=== PATIENT | female | born 1965 | race Caucasian/White ===

== ENCOUNTER 2019-11-02 16:57 | Emergency (ER) | payer OTHER ==
--- OUTSIDE RECORDS SUMMARY | 2019-11-02 16:58 | XMS REPORT ---
:1965 [facility] Address [address] [place] [address] Dr. Pride [address] [place] [id number] Care Team Providers Name Role Phone Unavailable Unavailable Unavailable Problems This patient has no known problems. Allergies, Adverse Reactions, Alerts This patient has no known allergies or adverse reactions. Medications This patient has no known medications.
--- NOTE | 2019-11-02 19:28 | RAD REPORT ---
EXAM DESCRIPTION: RAD - Chest Single View - 11/02/2019 7:02 pm CLINICAL HISTORY: AMS Chest pain. COMPARISON: No comparisons FINDINGS: Portable technique limits examination quality. The lungs are grossly clear. The heart is normal in size. No displaced fractures. IMPRESSION: No acute intrathoracic process suspected.
--- NOTE | 2019-11-02 19:30 | RAD REPORT ---
EXAM DESCRIPTION: CT - Head Brain Wo Cont - 11/02/2019 7:24 pm CLINICAL HISTORY: speech changes;Confused Headache, drowsiness COMPARISON: No comparisons TECHNIQUE: All CT scans are performed using dose optimization technique as appropriate and may inclu de automated exposure control or mA/KV adjustment according to patient size. FINDINGS: No intracranial hemorrhage, hydrocephalus or extra-axial fluid collection.No areas of brai n edema or evidence of midline shift. There is significant fluid within the visualized paranasal sinuses. The calvarium is intact. IMPRESSION: No acute intracranial abnormality. Significant opacification of the paranasal sinuses seen.
[2019-11-02 19:32] LABS: Barbiturates NEGATIVE (NEGATIVE); Benzodiazepines NEGATIVE (NEGATIVE); Cocaine NEGATIVE (NEGATIVE); METHAMPHETAM NEGATIVE (NEGATIVE); Methadone NEGATIVE (NEGATIVE); Opiates NEGATIVE (NEGATIVE); Phencyclidine NEGATIVE (NEGATIVE); THC Cannibis NEGATIVE (NEGATIVE)
[2019-11-02 19:46] LABS: Urine Blood NEGATIVE (NEG); Urine Glucose NEGATIVE (NEG); Urine Protein NEGATIVE (NEG); Urine pH 5.5 (5.0-7.0)
[2019-11-02 20:01] LABS: Absolute Lymphocytes (CBC) 2.1 K/uL (0.7-4.9); Basophils % 0.4 % (0-1.3); Hematocrit 35.2 % (36.0-45.0); Lymphocytes % 21.5 % (15.3-44.8); MPV 9.4 fL (7.6-11.3); RBC Red Blood Cell Count 4.24 M/uL (3.86-4.86)
[2019-11-02 20:17] LABS: ALT/SGPT 19 U/L (12-78); AST/SGOT 10 U/L (15-37); Albumin 3.3 g/dL (3.4-5.0); Alkaline Phosphatase 74 U/L (45-117); BUN Blood Urea Nitrogen 17 mg/dL (7-18); Bicarbonate 26 mmol/L (21-32); Bilirubin Direct < 0.1 mg/dL (0-0.2); Bilirubin Total 0.3 mg/dL (0.2-1.0); Glucose Level 102 mg/dL (74-106); Magnesium 2.1 mg/dL (1.8-2.4); Potassium 4.2 mmol/L (3.5-5.1); Protein, Total 6.5 g/dL (6.4-8.2); Sodium Level 137 mmol/L (136-145)
[2019-11-02] MEDS ORDERED: NA CHLORIDE 0.9% 1,000 ML ONE (20:24)
[2019-11-02] MEDS ORDERED: CEFTRIAXONE/SWI 1gm 1 GM/10 ML SYR ONE (20:24)
--- NOTE | 2019-11-02 21:31 | EDPHYS ---
Physician Documentation [facility] Name: Anai Castaneda Age: 54 yrs Sex: Female : 1965 Arrival Date: 11/02/2019 Time: 16:58 Bed 26 Private MD: ED Physician Lucia Platt HPI: 11/01 21:28 This 54 yrs old Female presents to ER via Ambulatory with complaints of Low ma2 Blood Sugar. 21:28 Onset: The symptoms/episode began/occurred gradually, 1 day(s) ago. Associated signs ma2 and symptoms: Pertinent negatives: anorexia, decreased urine output, diarrhea. The patient has not experienced similar symptoms in the past. 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 - Social history:: Smoking status: Patient reports the use of cigarette tobacco products, denies chronic smoking, but will smoke occasionally, Patient/guardian denies using alcohol, street drugs, Patient/guardian denies using. - Family history:: not pertinent. ROS: 21:28 Constitutional: Negative for fever, chills, and weight loss. ma2 21:28 All other systems are negative. Exam: 21:28 Constitutional: This is a well developed, well nourished patient who is awake, alert, ma2 and in no acute distress. Chest/axilla: Normal chest wall appearance and motion. Nontender with no deformity. No lesions are appreciated. Cardiovascular: Regular rate and rhythm with a normal S1 and S2. No gallops, murmurs, or rubs. Normal PMI, no JVD. No pulse deficits. Respiratory: Lungs have equal breath sounds bilaterally, clear to auscultation and percussion. No rales, rhonchi or wheezes noted. No increased work of breathing, no retractions or nasal flaring. Abdomen/GI: Soft, non-tender, with normal bowel sounds. No distension or tympany. No guarding or rebound. No evidence of tenderness throughout. MS/ Extremity: Pulses equal, no cyanosis. Neurovascular intact. Full, normal range of motion. Neuro: Awake and alert, GCS 15, oriented to person, place, time, and situation. Cranial nerves II-XII grossly intact. Motor strength 5/5 in all extremities. Sensory grossly intact. Cerebellar exam normal. Normal gait. Vital Signs: 17:14 BP 95 / 65; Pulse 77; Resp 17 S; Temp 98.4(TE); Pulse Ox 96% on R/A; Weight 69.85 kg ca1 (R); Height 5 ft. 4 in. (162.56 cm) (R); 18:26 BP 100 / 62; Pulse 72; Resp 16; Pulse Ox 97% on R/A; rb1 20:28 BP 95 / 65; Pulse 70; Resp 18; Pulse Ox 100% ; ea 22:01 BP 100 / 70; Pulse 68; Resp 18; Temp 97.6; Pulse Ox 100% ; ea 17:14 Body Mass Index 26.43 (69.85 kg, 162.56 cm) ca1 MDM: 20:29 Patient medically screened. ma2 21:28 Differential diagnosis: diabetes insipidus, hyperglycemia, hyperthyroidism. Data ma2 reviewed: vital signs, nurses notes. Counseling: I had a detailed discussion with the patient and/or guardian regarding: the historical points, exam findings, and any diagnostic results supporting the discharge/admit diagnosis, the presence of at least one elevated blood pressure reading (>120/80) during this emergency department visit, the need for outpatient follow up. Response to treatment: the patient's symptoms have markedly improved after treatment. ED course: she is back to normal normal vs and wbc, has uti, discussed with dr. pace will discharge and he will see her i the next 2 days . 11/01 17:38 Order name: Glucose, Ancillary Testing; Complete Time: 20:15 EDMS 11/01 18:49 Order name: Basic Metabolic Panel; Complete Time: 20:57 kdr 11/01 18:49 Order name: CBC with Diff; Complete Time: 20:15 kdr 11/01 18:49 Order name: LFT's; Complete Time: 20:57 kdr 11/01 18:49 Order name: Magnesium; Complete Time: 20:57 kdr 11/01 18:49 Order name: ETOH Level; Complete Time: 20:57 kdr 11/01 18:49 Order name: XRAY Chest (1 view); Complete Time: 20:15 kdr 11/01 18:49 Order name: CT Head Brain wo Cont; Complete Time: 20:15 kdr 11/01 18:49 Order name: UDS; Complete Time: 20:15 kdr 11/01 19:20 Order name: Urine Dipstick--Ancillary (enter results); Complete Time: 20:15 mt 11/01 18:49 Order name: IV Saline Lock; Complete Time: 19:49 kdr 11/01 18:49 Order name: Labs collected and sent; Complete Time: 19:49 kdr 11/01 18:49 Order name: O2 Per Protocol; Complete Time: 19:50 kdr 11/01 18:49 Order name: O2 Sat Monitoring; Complete Time: 19:50 kdr Administered Medications: 20:25 Drug: Rocephin 1 grams Route: IV; Rate: calculated rate; Site: right antecubital; ea 20:26 Drug: NS 0.9% 1000 ml Route: IV; Rate: 1 bolus; Site: right antecubital; ea 22:03 Follow up: Response: No adverse reaction; IV Status: Completed infusion; IV Intake: ea 1000ml Point of Care Testing: Blood Glucose: 17: Blood Glucose: 105 mg/dL; ca1 Ranges: Critical Glucose Levels:Adult <50 mg/dl or >400 mg/dl <40 mg/dl or >180 mg/dl Disposition: 11/02/19 21:30 Discharged to Home. Impression: Cystitis, unspecified without hematuria. - Condition is Stable. - Discharge Instructions: Urinary Tract Infection, Adult. - Prescriptions for Cipro 500 mg Oral Tablet - take 1 tablet by ORAL route every 12 hours for 7 days; 14 tablet. - Medication Reconciliation Form, Thank You Letter, Antibiotic Education, Prescription Opioid Use form. - Follow up: Private Physician; When: Tomorrow; Reason: If symptoms return. Signatures: Dispatcher [employer] EDMS Amaury Vivar MD MD kdr Antunez, Elena, RN RN Lucia Jolly MD MD ma2 Sarahi Cummings RN RN ca1 Corrections: (The following items were deleted from the chart) 21:29 21:25 Ammonia ordered. EDMS EDMS 22:02 21:30 11/02/2019 21:30 Discharged to Home. Impression: Cystitis, unspecified without ea hematuria. Condition is Stable. Forms are Medication Reconciliation Form, Thank You Letter, Antibiotic Education, Prescription Opioid Use. Follow up: Private Physician; When: Tomorrow; Reason: If symptoms return. ma2
--- NOTE | 2019-11-02 21:31 | ER ---
Nurse's Notes [facility] Name: Anai Castaneda Age: 54 yrs Sex: Female : 1965 Arrival Date: 11/02/2019 Time: 16:58 Bed 26 Private MD: Diagnosis: Cystitis, unspecified without hematuria Presentation: 11/01 17:14 Chief complaint: Patient's son or daughter states: Sent by Dr. Diaz, for A1C of 7.3. ca1 Reports confusion, delirium, decreased appetite. She has mental issues, mild cognitive impairment and bipolar disorder. She takes medications but it she is more disoriented and confused than usual. All these started around Wednesday. Blood work was done by nurse Shanon yesterday at [facility]. Pt A\T\Ox4, ambulatory. Coronavirus screen: Patient reports a cough. Patient denies shortness of breath or difficulty breathing. Patient denies measured and/or subjective temperature greater than 100.4F. Patient denies travel on a cruise ship or to a country the [facility] currently lists as an affected area. Patient denies contact with known and/or suspected case of COVID-19. Ebola Screen: Patient negative for fever greater than or equal to 101.5 degrees Fahrenheit, and additional compatible Ebola Virus Disease symptoms Patient denies exposure to infectious person. Patient denies travel to an Ebola-affected area in the 21 days before illness onset. No symptoms or risks identified at this time. Initial Sepsis Screen: Does the patient meet any 2 criteria? No. Patient's initial sepsis screen is negative. Does the patient have a suspected source of infection? No. Patient's initial sepsis screen is negative. Risk Assessment: Do you want to hurt yourself or someone else? Patient reports no desire to harm self or others. Onset of symptoms was November 02, 2019. 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 - Social history:: Smoking status: Patient reports the use of cigarette tobacco products, denies chronic smoking, but will smoke occasionally, Patient/guardian denies using alcohol, street drugs, Patient/guardian denies using. - Family history:: not pertinent. Screenin:00 Abuse screen: Denies threats or abuse. Nutritional screening: No deficits noted. rb1 Tuberculosis screening: No symptoms or risk factors identified. Fall Risk None identified. Assessment: 17:55 Reassessment: Son's name and Number for questions: [place] [phone]. ca1 18:00 General: Appears in no apparent distress. comfortable, Behavior is calm, cooperative, rb1 Denies fever, feeling ill, chills. 18:00 Pain: Complains of pain in anterior aspect of left upper chest Quality of pain is rb1 described as pressure. Neuro: Level of Consciousness is awake, alert, obeys commands, Oriented to person, place, situation, Speech is slurred, Pt. reports that she has had slurred speech for the last three years, but it has gotten worse over the last few weeks. She reports that she has early onset Dementia.. Neuro: Reports headache frontal area. Cardiovascular: Capillary refill < 3 seconds is brisk in bilateral fingers. Respiratory: Reports cough that is Airway is patent Respiratory effort is even, unlabored, Respiratory pattern is regular, symmetrical, Denies shortness of breath. GI: No signs and/or symptoms were reported involving the gastrointestinal system. : No signs and/or symptoms were reported regarding the genitourinary system. Derm: Skin is pink, warm \T\ dry. Musculoskeletal: Range of motion: intact in all extremities. 18:57 Reassessment: Patient appears in no apparent distress at this time. No changes from rb1 previously documented assessment. X-ray at the bedside. 19:35 General: Appears in no apparent distress. Behavior is calm, cooperative. Pain: ea Complains of pain in chest. Neuro: Level of Consciousness is awake, alert, obeys commands, Oriented to person, place. Respiratory: Airway is patent Respiratory effort is even, unlabored, Respiratory pattern is regular, symmetrical. Derm: Skin is pink, warm \T\ dry. 20:24 Reassessment: Patient and/or family updated on plan of care and expected duration. Pain ea level reassessed. Patient is alert, oriented x 3, equal unlabored respirations, skin warm/dry/pink. 21:00 Reassessment: Patient and/or family updated on plan of care and expected duration. Pain ea level reassessed. Patient is alert, oriented x 3, equal unlabored respirations, skin warm/dry/pink. 21:57 Reassessment: Patient and/or family updated on plan of care and expected duration. Pain ea level reassessed. Patient is alert, oriented x 3, equal unlabored respirations, skin warm/dry/pink. Discharge instruction given to patient, verbalized the understanding of instruction. Pt left ED ambulatory, son awaiting for patient at ED entrance. Pt left ED via private vehicle. Vital Signs: 17:14 BP 95 / 65; Pulse 77; Resp 17 S; Temp 98.4(TE); Pulse Ox 96% on R/A; Weight 69.85 kg ca1 (R); Height 5 ft. 4 in. (162.56 cm) (R); 18:26 BP 100 / 62; Pulse 72; Resp 16; Pulse Ox 97% on R/A; rb1 20:28 BP 95 / 65; Pulse 70; Resp 18; Pulse Ox 100% ; ea 22:01 BP 100 / 70; Pulse 68; Resp 18; Temp 97.6; Pulse Ox 100% ; ea 17:14 Body Mass Index 26.43 (69.85 kg, 162.56 cm) ca1 ED Course: 16:58 Patient arrived in ED. ag5 17:22 Triage completed. ca1 17:23 Arm band placed on right wrist. ca1 17:37 Amaury Vivar MD is Attending Physician. kdr 17:59 Kesha Chavez, RN is Primary Nurse. rb1 18:00 Patient has correct armband on for positive identification. Bed in low position. Call rb1 light in reach. Side rails up X 1. electronic device monitor on. Pulse ox on. NIBP on. Warm blanket given. 19:03 XRAY Chest (1 view) In Process Unspecified. EDMS 19:27 CT Head Brain wo Cont In Process Unspecified. EDMS 19:49 Inserted saline lock: 20 gauge in right forearm, using aseptic technique. ea 21:30 Lucia Platt MD is Attending Physician. ma2 21:50 IV discontinued, intact, bleeding controlled, No redness/swelling at site. Pressure ea dressing applied. 22:00 No provider procedures requiring assistance completed. ea Administered Medications: 20:25 Drug: Rocephin 1 grams Route: IV; Rate: calculated rate; Site: right antecubital; ea 20: Drug: NS 0.9% 1000 ml Route: IV; Rate: 1 bolus; Site: right antecubital; ea 22:03 Follow up: Response: No adverse reaction; IV Status: Completed infusion; IV Intake: ea 1000ml Point of Care Testing: Blood Glucose: 17: Blood Glucose: 105 mg/dL; ca1 Ranges: Intake: 22:03 IV: 1000ml; Total: 1000ml. ea Outcome: 21:30 Discharge ordered by . marek 22:01 Discharged to home ambulatory, with family. ea 22: Condition: stable 22:01 Discharge instructions given to patient, Instructed on discharge instructions, follow up and referral plans. medication usage, Demonstrated understanding of instructions, follow-up care, medications, Prescriptions given X 1. 22:02 Patient left the ED. ea Signatures: Dispatcher [employer] EDMS Amaury Vviar MD MD kdr Barber, Rebecca, CHARMAINE RN Antoinette Crocker RN RN ea Alzahri, Mohammad, MD MD ma2 Acob, Cheryl, RN RN ca1 Sumeet Reyes ag5 Corrections: (The following items were deleted from the chart) 17:57 17:14 Chief complaint: Patient's son or daughter states: Sent by Dr. Diaz, for A1C of ca1 7.3. Reports confusion, delirium, decreased appetite. She has mental issues, mild cognitive impairment and bipolar disorder. She takes medications but it she is more disoriented and confused than usual. All these started around Luis F. Blood work was done by nurse Claudio yesterday at [facility]. ca1 18:20 18:00 General: Appears in no apparent distress. comfortable, Behavior is calm, rb1 cooperative, Denies fever, feeling ill, chills, rb1
[2019-11-02 22:32] VITALS: O2SAT 100
[2019-11-02 22:33] VITALS: BP 100/70; TEMP 97.6
== END 2019-11-02 22:02 | disposition home or self-care (01) ==
LOC: ER 16:57
DX: N30.90 Cystitis, unspecified without hematuria (principal); I10 Essential (primary) hypertension; E11.9 Type 2 diabetes mellitus without complications; Z91.048 Other nonmedicinal substance allergy status
CPT/HCPCS: 96361; 85025; 80048; 36415; 80320; 83735; 82947; 80076; 80307 ×8; 81003; 70450; 71045; 96374; 99284; J0696; J7030

== ENCOUNTER 2020-03-05 16:58 | Observation (INO) | payer OTHER ==
--- OUTSIDE RECORDS SUMMARY | 2020-03-05 17:01 | XMS REPORT | Continuity of Care Document ---
:1965 Author Organization [facility] t Address [address] [place] [address] Dr. Young. [address] [place] [address] Care Team Providers Name Role Phone Cullen Saavedra Attending Clinician Problems This patient has no known problems. Allergies, Adverse Reactions, Alerts This patient has no known allergies or adverse reactions. Medications This patient has no known medications. Procedures This patient has no known procedures. Encounters Start End Encounter Admission Attending Care Care Encounter Source Date/Time Date/Time Type Type Clinicians Facility Department ID 2019-11-08 2019-11-08 Emergency CAROLINE Grossman [id number] 19:04:09 20:34:00 Lea Gregg [id number] [place] [id number] [place] [id number] Results This patient has no known results.
[2020-03-05 18:08] LABS: Basophils % 0.5 % (0-1.3); Hematocrit 38.8 % (36.0-45.0); Lymphocytes % 24.6 % (15.3-44.8); MPV 8.7 fL (7.6-11.3); RBC Red Blood Cell Count 4.74 M/uL (3.86-4.86)
[2020-03-05 18:11] LABS: Protime INR 0.96
--- NOTE | 2020-03-05 18:16 | RAD REPORT ---
EXAM DESCRIPTION: CT - Head Brain Wo Cont - 03/05/2020 5:53 pm CLINICAL HISTORY: ataxia COMPARISON: October 2019 TECHNIQUE: Computed axial tomography of the head was obtained. IV contrast was not requested. All CT scans are performed using dose optimization technique as appropriate and may include automated exposure control or mA/KV adjustment according to patient size. FINDINGS: An intracranial bleed is not seen . The ventricles are normal in caliber. No extra-axial fluid collection is noted. Mild cerebellar tonsillar ectopia. Fluid within the sinuses/ mastoids is not seen. IMPRESSION: No acute intracranial abnormality is seen. If patient's symptoms persist MRI of the bra in would be recommended.
--- NOTE | 2020-03-05 18:24 | RAD REPORT ---
EXAM DESCRIPTION: Saurav Single View03/05/2020 5:59 pm CLINICAL HISTORY: Ataxia/ dizziness COMPARISON: October 2000 FINDINGS: The lungs appear clear of acute infiltrate. The heart is normal size IMPRESSION: No acute abnormalities displayed
[2020-03-05 18:40] LABS: ALT/SGPT 38 U/L (12-78); AST/SGOT 23 U/L (15-37); Albumin 3.5 g/dL (3.4-5.0); Alkaline Phosphatase 66 U/L (45-117); BUN Blood Urea Nitrogen 18 mg/dL (7-18); Bicarbonate 25 mmol/L (21-32); Bilirubin Direct < 0.1 mg/dL (0-0.2); Bilirubin Total 0.4 mg/dL (0.2-1.0); Glucose Level 134 mg/dL (74-106); Magnesium 2.2 mg/dL (1.8-2.4); Protein, Total 6.6 g/dL (6.4-8.2); Sodium Level 139 mmol/L (136-145)
[2020-03-05 19:46] LABS: Urine Blood 3+ (NEG); Urine Glucose NEGATIVE (NEG); Urine Protein 2+ (NEG); Urine Specific Gravity 1.025 (1.005-1.030); Urine pH 5.5 (5.0-7.0)
[2020-03-05 19:56] LABS: Urine Bacteria >50 /HPF (<20); Urine Culture Reflex Order REFLEXED; Urine RBC >50 /HPF (NONE SEEN); Urine Trichomonas PRESENT (NONE SEEN)
[2020-03-05] MEDS ORDERED: metroNIDAZOLE 500 MG TABLET ONE (20:25)
--- NOTE | 2020-03-05 20:25 | ER ---
Nurse's Notes [facility] Name: Anai Castaneda Age: 54 yrs Sex: Female : 1965 Arrival Date: 03/05/2020 Time: 17:00 Bed 5 Private MD: Jimmie Diaz R Diagnosis: Ataxia, unspecified;Repeated falls;Trichomoniasis Presentation: 03/05 17:08 Chief complaint: Patient's son or daughter states: we just got off the phone with her tw2 psychiatrist, she is having equilibrium problems, falling down, hard time comprehending and hard to understand, lot more intense this past 3 days but it has been going on for a month, her psychiatrist wants to get her lithium level checked and to make sure it is not a stroke, and to check her WBC and last time this happened she had an infection, last time this happened she did have a yeast infection. Coronavirus screen: Patient denies a cough. Patient denies shortness of breath or difficulty breathing. Patient denies measured and/or subjective temperature greater than 100.4F prior to today's visit. Patient denies travel on a cruise ship or to a country the [facility] currently lists as an affected area. Patient denies contact with known and/or suspected case of COVID-19. Ebola Screen: Patient denies travel to an Ebola-affected area in the 21 days before illness onset. Initial Sepsis Screen: Does the patient meet any 2 criteria? No. Patient's initial sepsis screen is negative. Does the patient have a suspected source of infection? No. Patient's initial sepsis screen is negative. Risk Assessment: Do you want to hurt yourself or someone else? Patient reports no desire to harm self or others. Onset of symptoms was March 05, 2020. 17:08 Method Of Arrival: Ambulatory tw2 17:08 Acuity: МАРИЯ 3 tw2 17:18 Note SON -1st contact to call son Sukhdev Philippe pt lives with him, ph# [phone], 2nd tw2 contact to call daughterNatalia See ph#[phone]. Triage Assessment: 17:16 The onset of the patients symptoms was more than six hours ago. General: Appears in no tw2 apparent distress. Behavior is calm, cooperative, appropriate for age. Pain: Denies pain. Neuro: Level of Consciousness is awake, alert, obeys commands, Reports "i think my equilibrium is bothering me". Historical: - Allergies: 17:15 Iodine; tw2 - Home Meds: 17:15 benztropine 1 mg Oral tab 1 tab 2 times per day [Active]; bupropion HCl 150 mg Oral tw2 TbER [Active]; duloxetine 60 mg Oral cpDR 1 cap once daily [Active]; duloxetine 30 mg Oral cpDR 1 cap once daily [Active]; Glimepiride Oral [Active]; lithium carbonate 150 mg oral cap [Active]; meloxicam 7.5 mg Oral tab 1 tab once daily [Active]; metformin 500 mg Oral tab 1 tab 2 times per day [Active]; [id number] once a day [Active]; pramipexole 0.25 mg Oral tab 1 tab [Active]; simvastatin 40 mg Oral tab 1 tab once daily [Active]; ziprasidone HCl 40 mg Oral cap 1 cap 2 times per day [Active]; lisinopril 5 mg Oral tab 1 tab once daily [Active]; trazodone 50 mg Oral tab .5 tab as needed [Active]; aspirin 81 mg Oral chew 1 tab once daily [Active]; Multiple Vitamins oral tab [Active]; CoQ-10 30 mg oral cap [Active]; - PMHx: 17:15 Bipolar disorder; Diabetes - NIDDM; Hypertension; tw2 - PSHx: 17:15 Appendectomy; tw2 - Immunization history:: Adult Immunizations. - Social history:: Smoking status: Patient reports the use of cigarette tobacco products, 2 cigarette a day. Screenin:58 Abuse screen: Denies threats or abuse. Denies injuries from another. Nutritional jr10 screening: No deficits noted. Tuberculosis screening: No symptoms or risk factors identified. Fall Risk Fall in past 12 months (25 points). No secondary diagnosis (0 pts). IV access (20 points). Ambulatory Aid- None/Bed Rest/Nurse Assist (0 pts). Gait- Weak (10 pts.). Mental Status- Oriented to own ability (0 pts). Assessment: 17:54 VAN Scoring: Arm Drift: Patients demonstrates NO arm weakness. Patient is VAN Negative. jr10 Visual Disturbance: No visual disturbance noted. Aphasia: No aphasia noted. Neglect: No neglect noted. The patient is alert, and able to follow commands. The patient does not exhibit slurred or garbled speech. The patient is not exhibiting difficulty speaking. The patient does not exhibit difficulty understanding words. The patient is able to swallow own secretions with no drooling or need for suction. Patient tolerated one teaspoon of water. No drooling, immediate coughing, gurgling, or clearing of the throat was noted. The patient tolerated 90mL of water. No drooling, immediate coughing, gurgling, or clearing of the throat was noted. The patient passed the bedside swallow screening. Oral medications may be given as ordered. Contact Physician for further diet orders. General: Appears in no apparent distress. Behavior is calm, cooperative, appropriate for age. Pain: Denies pain. Neuro: Level of Consciousness is awake, alert, obeys commands, Oriented to person, place, time, situation, Appropriate for age Lead Scientist are equal bilaterally Moves all extremities. Speech is normal, Facial symmetry appears normal, Intact Reports weakness reports generalized weakness, reports multiple falls within the past few months stating that her legs feel weak at times; reports last fall 3 days ago Denies blurred vision dizziness, difficulty swallowing. Cardiovascular: No deficits noted. Denies chest pain. Respiratory: No deficits noted. Airway is patent Respiratory effort is even, unlabored, Respiratory pattern is regular, symmetrical, Breath sounds are clear bilaterally. Denies cough, shortness of breath. GI: No deficits noted. Abdomen is non-distended, Bowel sounds present X 4 quads. Abd is soft and non tender Patient currently denies diarrhea, nausea, vomiting. : No deficits noted. EENT: No deficits noted. Derm: No deficits noted. Musculoskeletal: Reports weakness in generalized weakness. 19:34 Reassessment: Patient and/or family updated on plan of care and expected duration. Pain ea level reassessed. Patient is alert, oriented x 3, equal unlabored respirations, skin warm/dry/pink. 20:36 Reassessment: Patient and/or family updated on plan of care and expected duration. Pain ea level reassessed. Patient is alert, oriented x 3, equal unlabored respirations, skin warm/dry/pink. Provider updated pt on need for admission, pt verbalized the understanding of instruction. Vital Signs: 17:08 BP 113 / 84; Pulse 70; Resp 17; Temp 97.7(TE); Pulse Ox 98% on R/A; Weight 68.04 kg tw2 (R); Height 5 ft. 3 in. (160.02 cm); Pain 0/10; 19:35 BP 104 / 58; Pulse 66; Resp 18; Pulse Ox 99% on R/A; ea 17:08 Body Mass Index 26.57 (68.04 kg, 160.02 cm) tw2 NIH Stroke Scale Scores: 17:54 NIHSS Score: 0 jr10 20:36 NIHSS Score: 0 pm1 ED Course: 17:00 Patient arrived in ED. ag5 17:01 Jimmie Diaz MD is Private Physician. ag5 17:11 Triage completed. tw2 17:11 Emma Jewell, RN is Primary Nurse. jr10 17:16 Arm band placed on. tw2 17:18 Mesfin Lagunas NP is PHCP. pm1 17:18 Scott Mcghee MD is Attending Physician. pm1 17:50 Inserted saline lock: 22 gauge in right antecubital area, using aseptic technique. IV jr10 is patent, is intact, with good blood return, Flushed. 17:52 CT Head Brain wo Cont In Process Unspecified. EDMS 17:[address] via stretcher. jr10 17:58 Patient has correct armband on for positive identification. Bed in low position. Call jr10 light in reach. Side rails up X2. Pulse ox on. NIBP on. 17:58 No provider procedures requiring assistance completed. jr10 17:59 XRAY Chest (1 view) In Process Unspecified. EDMS 20:23 Lucia Norris MD is Hospitalizing Provider. pm1 Administered Medications: 20:16 Drug: Flagyl 2 grams Route: PO; sg 20:35 Follow up: Response: No adverse reaction ea Outcome: 20:24 Decision to Hospitalize by Provider. pm1 20:24 Admitted to ER Hold. [email or web address]. sg 20:24 Condition: stable 03/06 08:35 Patient left the ED. iw NIH Stroke Scale - NIH Stroke Score Date: 03/05/2020 Time: 17:54 Total Score = 0 1a. Level of Consciousness (LOC) - 0(Alert) 1b. Level of Consciousness (LOC) (Year \\T\\ Age) - 0(Both) 1c. LOC Commands (Open \\T\\ Closes Eyes/Tack Cleaner) - 0(Both) 2. Best Gaze (Lateral Gaze Paresis) - 0(Normal) 3. Visual Field Loss - 0(No visual loss) 4. Facial Palsy - 0(Normal) 5a. Left Arm: Motor (10-second hold) - 0(No drift) 5b. Right Arm: Motor (10-second hold) - 0(No drift) 6a. Left Leg: Motor (5-second hold - always test supine) - 0(No drift) 6b. Right Leg: Motor (5-second hold - always test supine) - 0(No drift) 7. Limb Ataxia (finger/nose \\T\\ heel/acosta - test with eyes open) - 0(Absent) 8. Sensory Loss (pinprick arms/legs/face) - 0(Normal) 9. Best Language: Aphasia (description/naming/reading) - 0(No aphasia) 10. Dysarthria (speech clarity - read or repeat words) - 0(Normal) 11. Extinction and Inattention (visual/tactile/auditory/spatial/personal) - 0(No abnormality) Initials: jr10 NIH Stroke Scale - NIH Stroke Score Date: 03/05/2020 Time: 20:36 Total Score = 0 1a. Level of Consciousness (LOC) - 0(Alert) 1b. Level of Consciousness (LOC) (Year \\T\\ Age) - 0(Both) 1c. LOC Commands (Open \\T\\ Closes Eyes/Tack Cleaner) - 0(Both) 2. Best Gaze (Lateral Gaze Paresis) - 0(Normal) 3. Visual Field Loss - 0(No visual loss) 4. Facial Palsy - 0(Normal) 5a. Left Arm: Motor (10-second hold) - 0(No drift) 5b. Right Arm: Motor (10-second hold) - 0(No drift) 6a. Left Leg: Motor (5-second hold - always test supine) - 0(No drift) 6b. Right Leg: Motor (5-second hold - always test supine) - 0(No drift) 7. Limb Ataxia (finger/nose \\T\\ heel/acosta - test with eyes open) - 0(Absent) 8. Sensory Loss (pinprick arms/legs/face) - 0(Normal) 9. Best Language: Aphasia (description/naming/reading) - 0(No aphasia) 10. Dysarthria (speech clarity - read or repeat words) - 0(Normal) 11. Extinction and Inattention (visual/tactile/auditory/spatial/personal) - 0(No abnormality) Initials: pm1 Signatures: Dispatcher [employer] Vic Lopez, RN RN Liz Shultz RN RN Mesfin Whaley, AIR SHOVEL OPERATOR AIR SHOVEL OPERATOR pm1 Luz Khoury RN RN tw2 Antointete Arnett RN RN ea Gaskin, Ajare ag5 Emma Jewell RN RN jr10 Corrections: (The following items were deleted from the chart) 03/05 17:19 17:08 Chief complaint: Patient's son or daughter states: we just got off the tw2 phone with her psychiatrist, she is having equilibrium problems, falling down, hard time comprehending and hard to understand, lot more intense this last week but it has been going on for a month, her psychiatrist wants to get her lithium level checked and to make sure it is not a stroke, and to check her WBC and last time this happened she had an infection, last time this happened she did have a yeast infection, tw2 22:19 22:18 Admitted to ER Hold. Please see [facility] for further documentation. sg sg 22:19 22:18 Condition: stable sg sg
--- NOTE | 2020-03-05 20:25 | EDPHYS ---
Physician Documentation [facility] Name: Anai Castaneda Age: 54 yrs Sex: Female : 1965 Arrival Date: 03/05/2020 Time: 17:00 Bed 5 Private MD: Jimmie Diaz R ED Physician Scott Mcghee HPI: 03/05 17:42 This 54 yrs old Female presents to ER via Ambulatory with complaints of S/S pm1 of Possible Stroke. 17:42 The patient's problem is reported as difficulty walking, off balance, She feels that pm1 her right leg gets in the way. Onset: The symptoms/episode began/occurred 1 month(s) ago, and became worse 3 day(s) ago. The symptoms are alleviated by nothing. The symptoms are aggravated by nothing. Associated signs and symptoms: Pertinent positives: Vaginal discharge, Pertinent negatives: abdominal pain, chest pain, dizziness, headache, numbness, shortness of breath, tingling. Severity of symptoms: in the emergency department the symptoms are worse. The patient has experienced a previous episode, Was told that it was due to a yeast infection. The patient has been recently seen by a physician: psychiatrist by telemedicine wanted her to get checked for a possible stroke and have her lithium level evalauted. Historical: - Allergies: 17:15 Iodine; tw2 - Home Meds: 17:15 benztropine 1 mg Oral tab 1 tab 2 times per day [Active]; bupropion HCl 150 mg Oral tw2 TbER [Active]; duloxetine 60 mg Oral cpDR 1 cap once daily [Active]; duloxetine 30 mg Oral cpDR 1 cap once daily [Active]; Glimepiride Oral [Active]; lithium carbonate 150 mg oral cap [Active]; meloxicam 7.5 mg Oral tab 1 tab once daily [Active]; metformin 500 mg Oral tab 1 tab 2 times per day [Active]; [id number] once a day [Active]; pramipexole 0.25 mg Oral tab 1 tab [Active]; simvastatin 40 mg Oral tab 1 tab once daily [Active]; ziprasidone HCl 40 mg Oral cap 1 cap 2 times per day [Active]; lisinopril 5 mg Oral tab 1 tab once daily [Active]; trazodone 50 mg Oral tab .5 tab as needed [Active]; aspirin 81 mg Oral chew 1 tab once daily [Active]; Multiple Vitamins oral tab [Active]; CoQ-10 30 mg oral cap [Active]; - PMHx: 17:15 Bipolar disorder; Diabetes - NIDDM; Hypertension; tw2 - PSHx: 17:15 Appendectomy; tw2 - Immunization history:: Adult Immunizations. - Social history:: Smoking status: Patient reports the use of cigarette tobacco products, 2 cigarette a day. ROS: 17:59 Constitutional: Negative for fever, chills, and weight loss, Eyes: Negative for injury, pm1 pain, redness, and discharge, ENT: Negative for injury, pain, and discharge, Neck: Negative for injury, pain, and swelling, Cardiovascular: Negative for chest pain, palpitations, and edema, Respiratory: Negative for shortness of breath, cough, wheezing, and pleuritic chest pain, Abdomen/GI: Negative for abdominal pain, nausea, vomiting, diarrhea, and constipation, Back: Negative for injury and pain, MS/Extremity: Negative for injury and deformity, Skin: Negative for injury, rash, and discoloration. 17:59 : Positive for vaginal discharge, for 6 months, Negative for burning with urination, difficulty urinating, vaginal bleeding. 17:59 Neuro: Positive for Ataxia, Negative for dizziness, headache, numbness, tingling, weakness. Exam: 17:59 Constitutional: This is a well developed, well nourished patient who is awake, alert, pm1 and in no acute distress. Head/Face: Normocephalic, atraumatic. Neck: Trachea midline, no thyromegaly or masses palpated, and no cervical lymphadenopathy. Supple, full range of motion without nuchal rigidity, or vertebral point tenderness. No Meningismus. Chest/axilla: Normal chest wall appearance and motion. Nontender with no deformity. No lesions are appreciated. 17:59 Abdomen/GI: Soft, non-tender. No guarding or rebound. No evidence of tenderness throughout. Back: No spinal tenderness. No costovertebral tenderness. Full range of motion. Skin: Warm, dry with normal turgor. Normal color with no rashes, no lesions, and no evidence of cellulitis. MS/ Extremity: Pulses equal, no cyanosis. Neurovascular intact. Full, normal range of motion. 17:59 Cardiovascular: Exam negative for acute changes, Rate: normal, Rhythm: regular, Pulses: no pulse deficits are appreciated, Edema: is not appreciated. 17:59 Respiratory: Exam negative for acute changes, respiratory distress, shortness of breath. 17:59 Neuro: Orientation: is normal, Mentation: is normal, Cranial nerves: CN II- XII are normal as tested, Cerebellar function: Romberg testing is negative, normal finger to nose testing, Motor: is normal, moves all fours, strength is normal, strength is 5/5 in all extremities, Sensation: is normal, no obvious gross deficits. 18:29 Radiologist reports: No acute abnormalities on CT head pm1 20:36 Neuro: Gait: is unsteady, patient is unable to perform heel toe walking. pm1 Vital Signs: 17:08 BP 113 / 84; Pulse 70; Resp 17; Temp 97.7(TE); Pulse Ox 98% on R/A; Weight 68.04 kg tw2 (R); Height 5 ft. 3 in. (160.02 cm); Pain 0/10; 19:35 BP 104 / 58; Pulse 66; Resp 18; Pulse Ox 99% on R/A; ea 17:08 Body Mass Index 26.57 (68.04 kg, 160.02 cm) tw2 NIH Stroke Scale Scores: 17:54 NIHSS Score: 0 jr10 20:36 NIHSS Score: 0 pm1 MDM: 17:22 Patient medically screened. pm1 20:19 Data reviewed: vital signs. Data interpreted: Pulse oximetry: on room air is 99 %. pm1 Interpretation: normal. 20:19 Counseling: I had a detailed discussion with the patient and/or guardian regarding: the pm1 historical points, exam findings, and any diagnostic results supporting the discharge/admit diagnosis, lab results, radiology results, the need for further work-up and treatment in the hospital. 20:19 Physician consultation: Jimmie Diaz MD he is admitting his patients to the hospitalists.pm1 20:38 Physician consultation: Lucia Norris MD was called at 20:38, was contacted at 20:38, pm1 regarding admission, patient's condition, in the emergency department to see patient at 20:38. 03/05 17:41 Order name: Basic Metabolic Panel; Complete Time: 18:45 pm1 03/05 17:41 Order name: CBC with Diff; Complete Time: 18:27 pm1 03/05 17:41 Order name: LFT's; Complete Time: 18:45 pm1 03/05 17:41 Order name: Magnesium; Complete Time: 18:45 pm1 03/05 17:41 Order name: PT-INR; Complete Time: 18:27 pm1 03/05 17:41 Order name: Follansbee; Complete Time: 18:45 pm1 03/05 17:41 Order name: Urine Microscopic Only; Complete Time: 20:04 pm1 03/05 19:13 Order name: Urine Dipstick--Ancillary (enter results); Complete Time: 19:49 tt3 03/05 19:57 Order name: Urine Culture [facility] 03/05 20:47 Order name: CBC with Automated Diff [facility] 03/05 20:47 Order name: CBC with Automated Diff [facility] 03/05 20:47 Order name: Comprehensive Metabolic Panel [facility] 03/05 20:47 Order name: Comprehensive Metabolic Panel [facility] 03/05 20:47 Order name: Lipid Profile [facility] 03/05 17:41 Order name: CT Head Brain wo Cont; Complete Time: 18:27 pm03/05 17:41 Order name: EKG; Complete Time: 17:41 pm03/05 17:41 Order name: XRAY Chest (1 view); Complete Time: 18:27 pm03/05 17:41 Order name: EKG - Nurse/Tech; Complete Time: 18:11 pm03/05 17:41 Order name: IV Saline Lock; Complete Time: 17:48 pm03/05 17:41 Order name: Labs collected and sent; Complete Time: 17:49 pm03/05 17:41 Order name: Urine Dipstick-Ancillary (obtain specimen); Complete Time: 19:36 pm1 03/05 20:47 Order name: CONS Pharmacy Consult [facility] 03/05 20:47 Order name: Regular [facility] 03/05 20:47 Order name: Lipid Profile [facility] 03/05 20:47 Order name: Stroke Protocol [facility] Administered Medications: 20:16 Drug: Flagyl 2 grams Route: PO; sg 20:35 Follow up: Response: No adverse reaction ea Disposition: 03/06 08:43 Co-signature as Attending Physician, Scott Mcghee MD I agree with the assessment and gucci plan of care. Disposition: 03/05/20 20:24 Hospitalization ordered by Lucia Norris for Observation. Preliminary diagnosis are Ataxia, unspecified, Repeated falls, Trichomoniasis. - Bed requested for Telemetry/MedSurg (observation). - Status is Observation. iw - Condition is Stable. - Problem is new. - Symptoms have improved. NIH Stroke Scale - NIH Stroke Score Date: 03/05/2020 Time: 17:54 Total Score = 0 1a. Level of Consciousness (LOC) - 0(Alert) 1b. Level of Consciousness (LOC) (Year \T\ Age) - 0(Both) 1c. LOC Commands (Open \T\ Closes Eyes/Sap Pi Architect) - 0(Both) 2. Best Gaze (Lateral Gaze Paresis) - 0(Normal) 3. Visual Field Loss - 0(No visual loss) 4. Facial Palsy - 0(Normal) 5a. Left Arm: Motor (10-second hold) - 0(No drift) 5b. Right Arm: Motor (10-second hold) - 0(No drift) 6a. Left Leg: Motor (5-second hold - always test supine) - 0(No drift) 6b. Right Leg: Motor (5-second hold - always test supine) - 0(No drift) 7. Limb Ataxia (finger/nose \T\ heel/acosta - test with eyes open) - 0(Absent) 8. Sensory Loss (pinprick arms/legs/face) - 0(Normal) 9. Best Language: Aphasia (description/naming/reading) - 0(No aphasia) 10. Dysarthria (speech clarity - read or repeat words) - 0(Normal) 11. Extinction and Inattention (visual/tactile/auditory/spatial/personal) - 0(No abnormality) Initials: jr10 NIH Stroke Scale - NIH Stroke Score Date: 03/05/2020 Time: 20:36 Total Score = 0 1a. Level of Consciousness (LOC) - 0(Alert) 1b. Level of Consciousness (LOC) (Year \T\ Age) - 0(Both) 1c. LOC Commands (Open \T\ Closes Eyes/Sap Pi Architect) - 0(Both) 2. Best Gaze (Lateral Gaze Paresis) - 0(Normal) 3. Visual Field Loss - 0(No visual loss) 4. Facial Palsy - 0(Normal) 5a. Left Arm: Motor (10-second hold) - 0(No drift) 5b. Right Arm: Motor (10-second hold) - 0(No drift) 6a. Left Leg: Motor (5-second hold - always test supine) - 0(No drift) 6b. Right Leg: Motor (5-second hold - always test supine) - 0(No drift) 7. Limb Ataxia (finger/nose \T\ heel/acosta - test with eyes open) - 0(Absent) 8. Sensory Loss (pinprick arms/legs/face) - 0(Normal) 9. Best Language: Aphasia (description/naming/reading) - 0(No aphasia) 10. Dysarthria (speech clarity - read or repeat words) - 0(Normal) 11. Extinction and Inattention (visual/tactile/auditory/spatial/personal) - 0(No abnormality) Initials: pm1 Signatures: Dispatcher [employer] EDMS Vic Arzola RN RN sg Anderson, Corey, MD MD cha Williams, Irene, RN RN iw Caridad Salazar RN RN Mesfin Lagunas NP VENEER SUPERVISOR pm1 Luz Khoury RN RN tw2 Antoinette Arnett RN, ea Corrections: (The following items were deleted from the chart) 03/05 20:43 20:24 Hospitalization Ordered by Lucia Norris MD for Observation. Preliminary cg diagnosis is Ataxia, unspecified; Repeated falls; Trichomoniasis. Bed requested for Telemetry/MedSurg (observation). Status is Observation. Condition is Stable. Problem is new. Symptoms have improved. pm1 20:44 20:43 03/05/2020 20:24 Hospitalization Ordered by Lucia Norris MD for cg Observation. Preliminary diagnosis is Ataxia, unspecified; Repeated falls; Trichomoniasis. Bed requested for [facility] ER HOLD. Status is Observation. Condition is Stable. Problem is new. Symptoms have improved. 03/06 06:34 03/05 20:44 03/05/2020 20:24 Hospitalization Ordered by Lucia Norris MD for cg Observation. Preliminary diagnosis is Ataxia, unspecified; Repeated falls; Trichomoniasis. Bed requested for [facility] ER HOLD. Status is Observation. Condition is Stable. Problem is new. Symptoms have improved. 03/06 08:35 06:34 03/05/2020 20:24 Hospitalization Ordered by Lucia Norris MD for iw Observation. Preliminary diagnosis is Ataxia, unspecified; Repeated falls; Trichomoniasis. Bed requested for Telemetry/MedSurg (observation). Status is Observation. Condition is Stable. Problem is new. Symptoms have improved. cg
[2020-03-05] MEDS ORDERED: ONDANSETRON 4 MG/2 ML VIAL IV PRN (20:43)
[2020-03-05] MEDS ORDERED: MORPHINE 2 MG/ML SYR IV PRN (20:43)
[2020-03-05] MEDS ORDERED: ACETAMINOPHEN 500 MG TAB PO PRN (20:43)
[2020-03-05] MEDS ORDERED: NA CHLORIDE 0.9% 1,000 ML IV SCH (21:00)
[2020-03-05 21:27] VITALS: BMI 26.5
[2020-03-06] MEDS ORDERED: MORPHINE 2 MG/ML SYR ONE (01:22)
[2020-03-06] MEDS ORDERED: ONDANSETRON 4 MG/2 ML VIAL ONE (01:22)
[2020-03-06 05:24] LABS: Absolute Lymphocytes (CBC) 1.9 K/uL (0.7-4.9); Basophils % 0.4 % (0-1.3); Hematocrit 36.4 % (36.0-45.0); Lymphocytes % 25.9 % (15.3-44.8); MPV 8.7 fL (7.6-11.3); RBC Red Blood Cell Count 4.41 M/uL (3.86-4.86)
[2020-03-06 05:48] LABS: Bilirubin Total 0.2 mg/dL (0.2-1.0); Potassium 3.9 mmol/L (3.5-5.1); Protein, Total 5.7 g/dL (6.4-8.2)
[2020-03-06 08:43] VITALS: O2SAT 99
--- NOTE | 2020-03-06 08:52 | P.HP ---
Certification for Inpatient Patient admitted to: Observation With expected LOS: <2 Midnights Patient will require the following post-hospital care: None Practitioner: I am a practitioner with admitting privileges, knowledge of patient current condition, hospital course, and medical plan of care. Services: Services provided to patient in accordance with Admission requirements found in Title 42 Section 412.3 of the Code of Federal Regulations Patient History Date of Service: 03/05/20 Reason for admission: WEAKNESS; TIA VS. CVA History of Present Illness: Patient is a 54-year-old female who came to the hospital for symptom of stroke. Patient was having ataxia. Her right leg has been weak and she has been recently seen by her psychiatrist who was concerned she may have a stroke. She has had multiple diagnostic studies performed recently. Currently, her workup was unremarkable. She will be admitted for further evaluation with MRI studies. Allergies iodine Allergy (Intermediate, Verified 03/05/20 22:22) Itching/Hives/Rash Home Medications: Aspirin Chewable [Aspirin Chewable*] 81 mg PO DAILY 03/05/20 Benztropine Mesylate [Cogentin*] 1 mg PO BID 03/05/20 Duloxetine HCl 60 mg PO DAILY 03/05/20 Glimepiride 1 mg PO BID 03/05/20 [place] Carbonate [[place] Carbonate ER] 300 mg PO DAILY 03/05/20 Meloxicam [Mobic*] 7.5 mg PO DAILY 03/05/20 Metformin HCl [Glucophage*] 500 mg PO BIDWM 03/05/20 Omeprazole [Prilosec] 40 mg PO DAILY 03/05/20 Pramipexole [Mirapex*] 0.25 mg PO BEDTIME 03/05/20 Simvastatin 40 mg PO DAILY 03/05/20 Trazodone [Desyrel*] 25 mg PO DAILYPRN PRN 03/05/20 Ubidecarenone [Co Q-10] 30 mg PO DAILY 03/05/20 Ziprasidone HCl [Geodon*] 40 mg PO BID 03/05/20 buPROPion HCl [Bupropion HCl ER] 150 mg PO DAILY 03/05/20 lisinopriL [Lisinopril] 5 mg PO DAILY 03/05/20 Cefdinir [Omnicef] 300 mg PO BID #14 capsule 03/06/20 Duloxetine HCl 30 mg PO DAILY 03/06/20 Multivit-Min/FA/Lycopen/Lutein [Centrum Silver Tablet] 1 tab PO DAILY 03/06/20 metroNIDAZOLE [Flagyl] 500 mg PO Q12H #14 tablet 03/06/20 - Past Medical/Surgical History Has patient received pneumonia vaccine in the past: No - Family History Father Family History: Reviewed- Non-Contributory - Social History Smoking Status: Current every day smoker Alcohol use: No CD- Drugs: No Caffeine use: No Place of Residence: Home Review of Systems 10-point ROS is otherwise unremarkable Physical Examination - Vital Signs Temperature: 98.0 F Blood Pressure: 98/53 Pulse: 70 Respirations: 18 Pulse Ox (%): 99 - Physical Exam General: Alert, In no apparent distress, Oriented x3 HEENT: Atraumatic, PERRLA, Mucous membr. moist/pink, EOMI, Sclerae nonicteric Neck: Supple, 2+ carotid pulse no bruit, No LAD, Without JVD or thyroid abnormality Respiratory: Clear to auscultation bilaterally, Normal air movement Cardiovascular: Regular rate/rhythm, Normal S1 S2 Gastrointestinal: Normal bowel sounds, No tenderness Musculoskeletal: No tenderness Integumentary: No rashes Neurological: Normal gait, Normal speech, Normal strength at 5/5 x4 extr, Normal tone, Normal affect Lymphatics: No axilla or inguinal lymphadenopathy - Studies Laboratory Data (last 24 hrs) 03/05/20 17:48: PT 11.5, INR 0.96 03/05/20 17:48: WBC 8.0, Hgb 12.7, Hct 38.8, Plt Count 333 03/05/20 17:48: Sodium 139, Potassium 4.0, BUN 18, Creatinine 0.94, Glucose 134 H, Magnesium 2.2, Total Bilirubin 0.4, AST 23, ALT 38, Alkaline Phosphatase 66 Assessment & Plan - Problems (Diagnosis) (1) Acute CVA (cerebrovascular accident) Status: Acute (2) Paresthesias Status: Acute (3) Ataxia Status: Acute - Plan 1. MRI of the brain 2. Echocardiogram and carotid Doppler IF ANY ABNORMALITY NOTED ON MRI 3. Anti-platelet therapy and statin therapy 4. DVT prophylaxis - Advance Directives Does patient have a Living Will: No Does patient have a Durable POA for Healthcare: No - Code Status/Comfort Care Code Status Assessed: Yes Code Status: Full Code Critical Care: No Time Spent Managing PTS Care (In Minutes): 45
--- NOTE | 2020-03-06 11:08 | RAD REPORT ---
EXAM DESCRIPTION: MRI - Brain W/Wo Cont - 03/06/2020 10:56 am CLINICAL HISTORY: STOKE, LEFT SIDED ATAXIS Headache, drowsiness, CVA symptomology COMPARISON: MRA Head Wo Cont dated 03/06/2020; Head Brain Wo Cont dated 03/05/2020; Head Brain Wo Cont dated 11/02/2019 TECHNIQUE: Multi-sequence, multiplanar MR imaging of the brain was performed with contrast. FINDINGS: No intracranial hemorrhage, hydrocephalus, or extra-axial fluid collection.Mild T2 and FLA IR hyperintensity is seen in the periventricular in the deep white matter likely representing mild ch ronic microvascular ischemia. No edema or shift of midline structures. No intracranial mass. DWI is n egative for acute CVA. The midline structures are normally formed. Mastoid air cells and paranasal sinuses are clear. Post-contrast images show no abnormal enhancement to suggest tumor or infection. IMPRESSION: Negative for acute CVA or other acute intracranial abnormality. No pathologic post-contrast enhancement suspected.
--- NOTE | 2020-03-06 11:11 | RAD REPORT ---
EXAM DESCRIPTION: MRI - MRA Head Wo Cont - 03/06/2020 10:56 am CLINICAL HISTORY: Stroke; left sided ataxia CVA COMPARISON: Head Brain Wo Cont dated 03/05/2020; Brain W/Wo Cont dated 03/06/2020 FINDINGS: 3D noncontrast [id number] MR angiography of the [place] was performed. No aneurysm, flow-limiting stenosis or vascular malformation is seen. Right-sided vertebral artery ap pears dominant. The left vertebral artery is not well visualized. The visualized dural venous sinuses appear patent. IMPRESSION: No significant flow abnormality of the [place] is identified.
--- NOTE | 2020-03-06 11:17 | RAD REPORT ---
EXAM DESCRIPTION: MRI - MRA Neck W/Wo Cont - 03/06/2020 10:56 am CLINICAL HISTORY: STOKE, LEFT SIDED ATAXIS Headache, drowsiness COMPARISON: Brain W/Wo Cont dated 03/06/2020; MRA Head Wo Cont dated 03/06/2020 FINDINGS: Contrast enhance 2D [id number] MR angiography of the neck vessels was performed. Left aortic arch is noted. Both common carotid arteries and subclavian arteries are patent. No signif icant internal carotid artery stenosis is seen. Right vertebral artery is dominant and the left verte bral artery is nonvisualized. IMPRESSION: No significant flow abnormality is seen involving the neck vessels.
[2020-03-06] MEDS ORDERED: TRAZODONE 50 MG TABLET PO PRN (11:39)
[2020-03-06] MEDS ORDERED: D50W 25 GM/50 ML SYRINGE/VIAL IV PRN (11:40)
[2020-03-06] MEDS ORDERED: GLUCAGON 1 MG/VIAL IM PRN (11:40)
[2020-03-06] MEDS ORDERED: CEFTRIAXONE 1 GM/NS 50 ML 1 GM/50 ML BAG IV SCH (11:55)
[2020-03-06] MEDS ORDERED: CEFTRIAXONE/SWI 1gm 1 GM/10 ML SYR IV SCH (13:00)
[2020-03-06] MEDS ORDERED: INSULIN -REGULAR HUMAN 50 UNIT/0.5 ML ML SQ SCH (16:30)
[2020-03-06] MEDS ORDERED: ATORVASTATIN 20 MG TAB PO SCH (21:00)
[2020-03-06] MEDS ORDERED: PRAMIPEXOLE 0.25 MG TAB PO SCH (21:00)
[2020-03-06] MEDS ORDERED: BENZTROPINE 1 MG TAB PO SCH (21:00)
[2020-03-06] MEDS ORDERED: ZIPRASIDONE 20 MG CAP PO SCH (21:00)
--- NOTE | 2020-03-07 07:36 | EKG ---
Test Date: 2020-03-05 Test Time: 18:11:59 Performance Improvement Analyst: SIMI MEASUREMENT RESULTS: Intervals: Rate: 67 MN: 170 QRSD: 100 QT: 442 QTc: 467 Talmo: P: 66 MN: 170 QRS: -20 T: 47 INTERPRETIVE STATEMENTS: Normal sinus rhythm Inferior infarct, age undetermined Cannot rule out Anterior infarct, age undetermined Abnormal ECG No previous ECG available for comparison Electronically Signed On 03-07-20 07:32:47 CDT by Bryce Coker
[2020-03-07] MEDS ORDERED: BUPROPRION HCL S.R. 150MG TAB PO SCH (09:00)
[2020-03-07] MEDS ORDERED: LITHIUM CARBONATE 300 MG TAB PO SCH (09:00)
[2020-03-07] MEDS ORDERED: ASPIRIN 81 MG CHEWABLE TABLET PO SCH (09:00)
[2020-03-07] MEDS ORDERED: MELOXICAM 7.5 MG TAB PO SCH (09:00)
[2020-03-07] MEDS ORDERED: UBIDECARENONE 30 MG PO SCH (09:00)
[2020-03-07] MEDS ORDERED: lisinopriL 5 MG TAB PO SCH (09:00)
[2020-03-07] MEDS ORDERED: HOME MED 1 EA UNK (Simvastatin [Simvastatin] 40 MG) PO SCH (09:00)
[2020-03-07] MEDS ORDERED: MULTIVIT W/ MINERAL TAB PO SCH (09:00)
[2020-03-07] MEDS ORDERED: DULOXETINE 30 MG CAP PO SCH (09:00)
[2020-03-07] MEDS ORDERED: PANTOPRAZOLE 40MG TABLET PO SCH (09:00)
[2020-03-07] MEDS ORDERED: HOME MED 1 EA UNK (Omeprazole [Prilosec] 40 MG) PO SCH (09:00)
--- NOTE | 2020-03-08 21:13 | CON ---
Date of Consultation: 03/06/2020 Reason For Consultation: Consultation was called because of possible stroke. History Of Present Illness: Ms. Castaneda is a 54-year-old patient with hypertension, oku-jiyczxz-ctpft dent diabetes mellitus, and bipolar disorder who comes at [facility] with about a month's wo rth of intermittent right leg reportedly giving away and then returning back to normal. Symptoms did worsen over 3 days and that prompted her arrival at the hospital. Her head CT scan on 03/05/2020 sh owed no acute ischemic or hemorrhagic changes. She had admission for stroke workup. Her brain MRI d one the following day, that is 03/06/2020, showed no acute ischemic or hemorrhagic change. Her MRA o f the head was also unremarkable for any significant abnormalities in the [place]. Her bloo d work revealed no significant abnormalities on complete blood count with differential on comprehensi ve metabolic panel except for slightly elevated glucose up to 143, calcium was 8.3 when hydrated. He r cholesterol panel show LDL of 47, HDL of 45, total cholesterol 120. Urine did show positive urinar y tract infection with Trichomonas present, bacteria greater than 50, white blood cell count greater than 50, red blood cell count greater than 53, 3+ esterase, 3+ blood, 2+ protein. Martha level is 0 .7. Her urine cultures, however, did grow mixed norman. Past Medical History: Positive for the mentioned above bipolar, diabetes, and hypertension. Surgical History: Appendectomy. Allergies: IODINE. Medications: At home, benztropine 1 mg twice daily, bupropion 150 mg daily, Duloxetine 90 mg daily, glimepiride daily, lithium 150 mg daily, meloxicam 7.5 mg daily, metformin 5 mg tablets twice daily, omeprazole 40 mg daily, pramipexole 0.25 mg daily, simvastatin 40 mg at bedtime, ziprasidone 40 mg ca psules twice daily, lisinopril 5 mg daily, trazodone 50 mg at bedtime, aspirin 81 mg daily, multivita min, and coenzyme Q10 daily. Family History: Noncontributory. Social History: Smokes at least 2 cigarettes daily and occasionally uses alcohol. Review of Systems: Aside from mentioned, no recent fevers or chills. No nausea, vomiting, myalgias, arthralgias. No he adache or weight change. Physical Examination: Vital Signs: Blood pressure 126/62, pulse of 67, respiratory rate 16, temperature 97.1. Oxygen satu ration 98%. Weight 150 pounds, height 5 feet 3 inches. General: Ms. Castaneda is resting in bed. She is ready to be discharged. She is in no acute distress. HEENT: She is normocephalic, atraumatic. Sclerae are anicteric. Oropharynx is pink and moist. Neck: Supple. Chest: Clear. Heart: Regular. Extremities: Show no edema, cyanosis, or clubbing. Neurological: She has no focal neurologic deficits. Intact cranial nerves, motor, coordination, gai t, reflexes. Assessment: Ms. Castaneda is a 54-year-old patient with a urinary tract infection, possibly aggravating her symptoms. Plan: 1.Continue with aggressive management of hypertension and diabetes. 2.Continue with antibiotics for urinary tract infection. 3.Discharge home and follow up with Dr. Hood in 1 month. CRYSTAL/MALKA Voice ID: [id number] Report ID: [id number]
[2020-03-13 08:15] VITALS: BP 98/53; TEMP 98
--- NOTE | 2020-03-13 08:18 | P.DS ---
Discharge Date: 03/06/20 Disposition: ROUTINE DISCHARGE Discharge Condition: GOOD Reason for Admission: WEAKNESS; TIA VS. CVA Consultations: Neurology - Problems (1) Acute CVA (cerebrovascular accident) Status: Acute (2) Paresthesias Status: Acute (3) Ataxia Status: Acute Brief History of Present Illness: Patient is a 54-year-old female who came to the hospital for symptom of stroke. Patient was having ataxia. Her right leg has been weak and she has been recently seen by her psychiatrist who was concerned she may have a stroke. She has had multiple diagnostic studies performed recently. Currently, her workup was unremarkable. She will be admitted for further evaluation with MRI studies. Hospital Course: Patient had MRI which was negative. Patient was seen by neurology and at this time no further workup necessary. Patient's clinical symptoms are resolved. Patient ambulating without much difficulty. At the time, patient is stable for discharge home. Vital Signs/Physical Exam: Temp Pulse Resp BP Pulse Ox 98.0 F 70 18 98/53 L 99 03/13/20 08:15 03/13/20 08:15 03/13/20 08:15 03/13/20 08:15 03/13/20 08:15 General: Alert, In no apparent distress, Oriented x3 Laboratory Data at Discharge: WBC 7.4 K/uL (4.3-10.9) 03/06/20 05:05 Hgb 11.9 g/dL (12.0-15.0) L 03/06/20 05:05 Hct 36.4 % (36.0-45.0) 03/06/20 05:05 Plt Count 282 K/uL (152-406) 03/06/20 05:05 PT 11.5 SECONDS (9.2-12.8) 03/05/20 17:48 INR 0.96 03/05/20 17:48 Sodium 141 mmol/L (136-145) 03/06/20 05:05 Potassium 3.9 mmol/L (3.5-5.1) 03/06/20 05:05 BUN 17 mg/dL (7-18) 03/06/20 05:05 Creatinine 0.96 mg/dL (0.55-1.3) 03/06/20 05:05 Glucose 143 mg/dL (74-106) H 03/06/20 05:05 Magnesium 2.2 mg/dL (1.8-2.4) 03/05/20 17:48 Total Bilirubin 0.2 mg/dL (0.2-1.0) 03/06/20 05:05 AST 17 U/L (15-37) 03/06/20 05:05 ALT 32 U/L (12-78) 03/06/20 05:05 Alkaline Phosphatase 62 U/L (45-117) 03/06/20 05:05 Triglycerides 142 mg/dL (<150) 03/06/20 05:05 Cholesterol 120 mg/dL (<200) 03/06/20 05:05 HDL Cholesterol 45 mg/dL (40-60) 03/06/20 05:05 Cholesterol/HDL Ratio 2.67 03/06/20 05:05 Home Medications: Aspirin Chewable [Aspirin Chewable*] 81 mg PO DAILY 03/05/20 Benztropine Mesylate [Cogentin*] 1 mg PO BID 03/05/20 Duloxetine HCl 60 mg PO DAILY 03/05/20 Glimepiride 1 mg PO BID 03/05/20 [place] Carbonate [[place] Carbonate ER] 300 mg PO DAILY 03/05/20 Meloxicam [Mobic*] 7.5 mg PO DAILY 03/05/20 Metformin HCl [Glucophage*] 500 mg PO BIDWM 03/05/20 Omeprazole [Prilosec] 40 mg PO DAILY 03/05/20 Pramipexole [Mirapex*] 0.25 mg PO BEDTIME 03/05/20 Simvastatin 40 mg PO DAILY 03/05/20 Trazodone [Desyrel*] 25 mg PO DAILYPRN PRN 03/05/20 Ubidecarenone [Co Q-10] 30 mg PO DAILY 03/05/20 Ziprasidone HCl [Geodon*] 40 mg PO BID 03/05/20 buPROPion HCl [Bupropion HCl ER] 150 mg PO DAILY 03/05/20 lisinopriL [Lisinopril] 5 mg PO DAILY 03/05/20 Cefdinir [Omnicef] 300 mg PO BID #14 capsule 03/06/20 Duloxetine HCl 30 mg PO DAILY 03/06/20 Multivit-Min/FA/Lycopen/Lutein [Centrum Silver Tablet] 1 tab PO DAILY 03/06/20 metroNIDAZOLE [Flagyl] 500 mg PO Q12H #14 tablet 03/06/20 New Medications: metroNIDAZOLE [Flagyl] 500 mg PO Q12H #14 tablet Cefdinir [Omnicef] 300 mg PO BID #14 capsule Patient Discharge Instructions: OK TO DC IV AND DC HOME. FOLLOW-UP WITH PRIMARY CARE PROVIDER IN 1-2 WEEKS. FOLLOW-UP WITH PULMONARY IN 1-2 WEEKS. RETURN TO THE ER IF symptoms worsen. CALL or TEXT DR. VINCENT AT [phone] IF ANY QUESTIONS REGARDING HOSPITAL STAY. PLEASE CALL THE FLOOR AT [phone] IF ANY MEDICATION OR NURSING QUESTIONS. Diet: AHA Activity: Fall precautions Followup: Hu Hood MD [ASSOCIATE-ACTIVE - CAN ADMIT] - Time spent managing pt's care (in minutes): 20
== END 2020-03-06 14:41 | disposition home or self-care (01) ==
LOC: ER 16:58 → ERHOLD 20:50 → 2ND 03-06 08:01
PROVIDERS: ADMIT Hospitalist; ATTEND Hospitalist
DX: N39.0 Urinary tract infection, site not specified (principal); A59.9 Trichomoniasis, unspecified; Z91.81 History of falling; R27.0 Ataxia, unspecified; I10 Essential (primary) hypertension; E11.9 Type 2 diabetes mellitus without complications; F31.9 Bipolar disorder, unspecified; F17.210 Nicotine dependence, cigarettes, uncomplicated; Z79.84 Long term (current) use of oral hypoglycemic drugs; Z79.1 Long term (current) use of non-steroidal anti-inflammatories (NSAID); Z79.82 Long term (current) use of aspirin; Z79.899 Other long term (current) drug therapy
CPT/HCPCS: 93005; 87088; 85025 ×2; 87086; 80048; 36415; 83735; 85610; 80061; 80178; 82947 ×2; 80076; 80053; 70450; 71045; 70553; 70544; 70549; 99285; A9577; J2270; J0696; J2405; G0378 ×3; 81003; 81015

== ENCOUNTER 2020-08-21 17:31 | Emergency (ER) | payer OTHER ==
--- OUTSIDE RECORDS SUMMARY | 2020-08-21 17:34 | XMS REPORT | Continuity of Care Document ---
:1965 Author Organization [facility] t Address [address] [place] [address] Care Team Providers Name Role Phone Doctor Unassigned, Name Attending Clinician Unavailable Fredrick Ng PT Attending Clinician Unavailable Cullen Saavedra Attending Clinician Problems This patient has no known problems. Allergies, Adverse Reactions, Alerts This patient has no known allergies or adverse reactions. Medications This patient has no known medications. Procedures This patient has no known procedures. Encounters Start End Encounter Admission Attending Care Care Encounter Source Date/Time Date/Time Type Type Clinicians Facility Department ID 2020-04-17 2020-04-17 Orders Doctor CASTILLO [id number] 00:00:00 00:00:00 Only UnassignedMANGO [id number] [place] [id number] 2020-04-16 2020-04-16 Ancillary Fredrick [facility] [id number] 13:05:12 14:05:12 Visit Cristino Ng [id number] Rosita Prater [id number] [place] [id number] [address] 2019-11-08 2019-11-08 Emergency CAROLINE Grossman [id number] 19:04:09 20:34:00 Lea Gregg [id number] [place] [id number] [place] [id number] Results This patient has no known results.
--- NOTE | 2020-08-21 21:41 | ER ---
Nurse's Notes [facility] Name: Anai Castaneda Age: 54 yrs Sex: Female : 1965 Arrival Date: 08/21/2020 Time: 17:35 Bed Waiting Private MD: Jimmie Diaz R Diagnosis: Presentation: 08/21 18:16 Chief complaint: Patient states: Pt reports inability to find her way home last night, jl7 pt's daughter reports that has happened before but today at 1500 she almost fell down, but that has happened before as well but her symptoms might be worse than they normally are. The only change in her medications is she started taking Conway recently which she took earlier so it might be from that. Pt also reports chills and cough for the last few days, denies urinary symptoms. Coronavirus screen: Client denies travel out of the [place] in the last 14 days. At this time, the client does not indicate any symptoms associated with coronavirus-19. Ebola Screen: No symptoms or risks identified at this time. Initial Sepsis Screen: Does the patient meet any 2 criteria? No. Patient's initial sepsis screen is negative. Does the patient have a suspected source of infection? No. Patient's initial sepsis screen is negative. Risk Assessment: Do you want to hurt yourself or someone else? Patient reports no desire to harm self or others. Onset of symptoms was August 20, 2020 at 21:00. Care prior to arrival: None. 18:16 Method Of Arrival: Ambulatory jl7 18:16 Acuity: МАРИЯ 3 jl7 Triage Assessment: 18:27 General: Appears in no apparent distress. uncomfortable, Behavior is calm, cooperative, jl7 appropriate for age. Pain: Denies pain. GI: Reports nausea. 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 jl7 Historical: - Allergies: 18:27 Iodine; jl7 - Home Meds: 18:27 aspirin 81 mg Oral chew 1 tab once daily [Active]; benztropine 1 mg Oral tab 1 tab 2 jl7 times per day [Active]; bupropion HCl 150 mg Oral TbER [Active]; CoQ-10 30 mg Oral cap [Active]; duloxetine 60 mg Oral cpDR 1 cap once daily [Active]; duloxetine 30 mg Oral cpDR 1 cap once daily [Active]; Glimepiride Oral [Active]; lisinopril 5 mg Oral tab 1 tab once daily [Active]; lithium carbonate 150 mg Oral cap [Active]; meloxicam 7.5 mg Oral tab 1 tab once daily [Active]; metformin 500 mg Oral tab 1 tab 2 times per day [Active]; Multiple Vitamins Oral tab [Active]; [id number] once a day [Active]; pramipexole 0.25 mg Oral tab 1 tab [Active]; simvastatin 40 mg Oral tab 1 tab once daily [Active]; trazodone 50 mg Oral tab 0.5 tab as needed [Active]; ziprasidone HCl 40 mg Oral cap 1 cap 2 times per day [Active]; Conway 5-325 mg Oral tab [Active]; - PMHx: 18:27 Bipolar disorder; Hypertension; Diabetes - NIDDM; ischemia vascular dementia; mild jl7 cognitive impairment; - PSHx: 18:27 Appendectomy; jl7 - Immunization history:: Adult Immunizations not up to date. - Social history:: Smoking status: Patient reports the use of cigarette tobacco products, smokes one-half pack cigarettes per day, Reported history of juuling and/or vaping. Vital Signs: 18:16 BP 138 / 69; Pulse 94; Resp 19; Temp 99.7; Pulse Ox 99% ; jl7 ED Course: 17:35 Patient arrived in ED. ag5 17:41 Jimmie Diaz MD is Private Physician. ag5 18:24 Triage completed. jl7 18:27 Arm band placed on right wrist. jl7 Administered Medications: No medications were administered Outcome: 21:41 Patient left the ED. Signatures: Netta Delgado RN RN Tyrel Blackwood RN RN jl7 Sumeet Reyes ag5 Corrections: (The following items were deleted from the chart) 18:42 18:16 Chief complaint: Patient states: Pt reports inability to find her way home last jl7 night, pt's daughter reports that has happened before but today at 1500 she fell down so her symptoms are worse than they normally are. The only change in her medications is she started taking [place] recently. Pt also reports chills and cough for the last few days, denies urinary symptoms jl7
[2020-08-21 21:47] VITALS: BP 138/69; TEMP 99.7; O2SAT 99
== END 2020-08-21 21:41 | disposition left against medical advice (07) ==
LOC: ER 17:31
DX: R05 Cough (principal); I10 Essential (primary) hypertension; E11.9 Type 2 diabetes mellitus without complications; F31.9 Bipolar disorder, unspecified; Z91.09 Other allergy status, other than to drugs and biological substances; F17.210 Nicotine dependence, cigarettes, uncomplicated; F17.290 Nicotine dependence, other tobacco product, uncomplicated; Z53.21 Procedure and treatment not carried out due to patient leaving prior to being seen by health care provider
CPT/HCPCS: 99281